=== PATIENT | female | born 1940 | race Hispanic/Latino ===

== ENCOUNTER 2018-05-28 10:51 | Emergency (ER) | payer MEDICARE ==
--- NOTE | 2018-05-28 12:07 | Emergency Department Report ---
ED Fall HPI - General Chief Complaint: Extremity Injury, Upper Stated Complaint: FEEL HIT HEAD/SHOULDER Time Seen by Provider: 05/28/18 12:01 Source: patient, family Mode of arrival: Wheelchair - History of Present Illness Initial Comments: This is a 77-year-old female here report that she tripped and fell from ground level and landed on her right shoulder and she also hit the right side of her head. She says she does not remember hitting her head but is a bruise on the right jain area. Pain is 6 out of 10 and achy. Reports pain with movement of her right shoulder. Pain is worse with movement better rest. No medication taken. Family member reports the patient has a touch of dementia. She denies any dizziness or nausea vomiting. She reports bruising to right shoulder and left anterior head. 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 denies: neck pain, numbness, weakness, chest paint, shortness of breath, abdominal pain, hematuria, unable to walk, lightheaded, vertigo, confusion - Related Data Home Medications Medication Instructions Recorded Confirmed Last Taken Albuterol Sulfate [Ventolin HFA] 1 inhalation INHALATION PRN PRN 05/17/1405/20/14 Amlodipine Besylate/Benazepril 1 cap PO DAILY 05/17/14 05/21/14 05/21/14 [amLODIPine-Benazepril 5/20 mg] Budesonide/Formoterol Fumarate 1 inhalation INHALATION DAILY 05/17/14 05/21/14 05/20/14 [Symbicort 160-4.5 Mcg Inhaler] Gabapentin 1 cap PO TID 05/17/14 05/21/14 05/21/14 Omeprazole [PriLOSEC] 1 cap PO DAILY 05/17/14 05/21/14 05/20/14 Rosuvastatin Calcium [Crestor] 1 tab PO DAILY 05/17/14 05/21/14 05/20/14 Tramadol HCl 1 tab PO PRN 05/17/14 05/21/14 05/20/14 Previous Rx's Medication Instructions Recorded Last Taken Type traMADol [Ultram 50 MG tab] 50 mg PO Q6HR PRN #12 tablet 05/28/18 Unknown Rx Allergies Allergy/AdvReac Type Severity Reaction Status Date / Time No Known Allergies Allergy Verified 05/21/14 08:08 ED Review of Systems ROS: Stated complaint: FEEL HIT HEAD/SHOULDER Other details as noted in HPI Constitutional: denies: chills, fever Eyes: denies: eye pain, eye discharge, vision change Respiratory: denies: cough, shortness of breath, SOB with exertion, SOB at rest , stridor, wheezing Cardiovascular: denies: chest pain, palpitations, edema, syncope Gastrointestinal: denies: abdominal pain, nausea, vomiting, diarrhea, constipation Genitourinary: denies: urgency, dysuria, discharge Musculoskeletal: joint swelling, arthralgia. denies: back pain Skin: rash (Bruising right side of head frontally). denies: lesions Neurological: denies: headache, weakness, numbness, paresthesias, abnormal gait , vertigo ED Past Medical Hx - Past Medical History Previous Medical History?: Yes Hx Hypertension: Yes (30YRS, amlodipine) Hx Pulmonary Embolism: No Hx Arthritis: Yes Hx Asthma: Yes (symbicort/budesonide, albuterol) Hx COPD: No Hx Tuberculosis: No - Surgical History Past Surgical History?: Yes Hx Breast Surgery: Yes (BREAST IMPLANTS/REMOVED) - Family History Family history: hypertension - Social History Smoking Status: Never Smoker Substance Use Type: None - Medications Home Medications: Home Medications Medication Instructions Recorded Confirmed Last Taken Type Albuterol Sulfate [Ventolin HFA] 1 inhalation INHALATION PRN PRN 05/17/1405/20/14 History Amlodipine Besylate/Benazepril 1 cap PO DAILY 05/17/14 05/21/14 05/21/14 History [amLODIPine-Benazepril 5/20 mg] Budesonide/Formoterol Fumarate 1 inhalation INHALATION DAILY 05/17/14 05/21/14 05/20/14 History [Symbicort 160-4.5 Mcg Inhaler] Gabapentin 1 cap PO TID 05/17/14 05/21/14 05/21/14 History Omeprazole [PriLOSEC] 1 cap PO DAILY 05/17/14 05/21/14 05/20/14 History Rosuvastatin Calcium [Crestor] 1 tab PO DAILY 05/17/14 05/21/14 05/20/14 History Tramadol HCl 1 tab PO PRN 05/17/14 05/21/14 05/20/14 History traMADol [Ultram 50 MG tab] 50 mg PO Q6HR PRN #12 tablet 05/28/18 Unknown Rx ED Physical Exam - General Limitations: No Limitations General appearance: alert, in no apparent distress - Head Head exam: Present: atraumatic, normocephalic, normal inspection, other ( patient with small superficial ecchymotic area to right jain) - Expanded Head Exam Expanded Head exam: Present: contusion (right jain). Absent: laceration, abrasion, hematoma, racoon eyes, lopez's sign, general tenderness, CSF otorrhea - Eye Eye exam: Present: normal appearance, PERRL, EOMI. Absent: conjunctival injection, nystagmus, periorbital swelling, periorbital tenderness Pupils: Present: normal accommodation - ENT ENT exam: Present: normal exam, normal orophraynx, mucous membranes moist, TM's normal bilaterally, normal external ear exam - Neck Neck exam: Present: normal inspection, full ROM, other (no C-spine tenderness). Absent: tenderness, meningismus, lymphadenopathy - Respiratory Respiratory exam: Present: normal lung sounds bilaterally. Absent: respiratory distress, chest wall tenderness - Cardiovascular Cardiovascular Exam: Present: regular rate, normal rhythm, normal heart sounds. Absent: systolic murmur, diastolic murmur - GI/Abdominal GI/Abdominal exam: Present: soft, normal bowel sounds. Absent: distended, tenderness, rigid, organomegaly - Extremities Exam Extremities exam: Present: full ROM, tenderness (right anterior shoulder), joint swelling, other (No cce. + 2 pulses in all extremities, no neurovascular compromise except she has a small ecchymotic area to right anterior shoulder with tenderness to palpate in pain with movement.). Absent: normal inspection, normal capillary refill, pedal edema, calf tenderness - Expanded Upper Extremity Exam Right General: Present: other (ecchymotic area to right anterior shoulder). Absent: normal inspection Shoulder Exam: Present: full ROM (pain passive and active range of motion), tenderness (anterior shoulder), swelling, ecchymosis. Absent: normal inspection , abrasion, laceration, deformity, crepidus, dislocation, erythema, tenderness over AC joint Upper Arm exam: Present: normal inspection, full ROM. Absent: tenderness, swelling, abrasion, laceration, ecchymosis, deformity, crepidus, dislocation, erythema Elbow exam: Present: normal inspection, full ROM. Absent: tenderness, swelling , abrasion, laceration, ecchymosis, deformity, crepidus, dislocation, erythema, effusion, pain w/ pronation/supination, tenderness over radial head Forearm Wrist exam: Present: normal inspection, full ROM. Absent: tenderness, swelling, abrasion, laceration, ecchymosis, deformity, crepidus, dislocation, tenderness over anatomical snuff box, pain with axial thumb loading Hand Wrist exam: Present: normal inspection, full ROM. Absent: tenderness, swelling, abrasion, laceration, ecchymosis, deformity, crepidus, dislocation, erythema, amputation, nail avulsion, subungual hematoma Neuro motor exam: Present: wrist extension intact, thumb opposition intact, thumb IP flexion intact, thumb adduction intact, fingers 2-5 abduction intact Neurosensory exam: Present: 2-point discrimination, radial nerve intact, ulnar nerve intact, median nerve intact Vascular: Present: normal capillary refill, radial pulse, brachial pulse, ulnar pulse. Absent: vascular compromise, Pallo, pulse deficit radial art, pulse deficit ulnar art, pulse deficit brachial art - Back Exam Back exam: Present: normal inspection, full ROM, other (ambulates without any difficulties). Absent: tenderness, CVA tenderness (R), CVA tenderness (L), muscle spasm, paraspinal tenderness, vertebral tenderness, rash noted - Neurological Exam Neurological exam: Present: alert, oriented X3 - Expanded Neurological Exam Expanded Neurological exam: Absent: innattentive, memory loss-remote event, memory loss- recent event, ataxia, receptive aphasia, expressive aphasia, total aphasia, tremor, protecting the airway Patient oriented to: Present: person, place, time Speech: Present: fluid speech Cranial nerves: EOM's Intact: Normal, Gag Reflex: Normal, Tongue Deviation: Normal, Nystagmus: Normal, Facial Sensation: Normal Upper motor neuron: Pronator Drift: Normal, Sensory Extinction: Normal Sensory exam: Upper Extremity Light Touch: Normal, Upper Extremity Temperature: Normal, UE 2 Point Discrimination: Normal, Lower Extremity Light Touch: Normal, Lower Extremity Temperature: Normal, LE 2 Point Discrimination: Normal Motor strength exam: RUE: 5, LUE: 5, RLE: 5, LLE: 5 Best Eye Response ([place]): (4) open spontaneously Best Motor Response ([place]): (6) obeys commands Best Verbal Response ([place]): (5) oriented [place] Total: 15 - Psychiatric Psychiatric exam: Present: normal affect, normal mood - Skin Skin exam: Present: warm, dry, intact, rash, ecchymosis (ecchymotic area or right anterior shoulder and right temporal area. Superficial and tender to palpate.). Absent: normal color - Expanded Skin Exam Expanded Type of lesion: Present: other (ecchymosis) Distribution of rash: head, RUE Description of rash: Present: other (ecchymosis). Absent: fluctuant, indurated ED Course Vital Signs 05/28/18 11:13 Temperature 98.2 F Pulse Rate 81 Respiratory 16 Rate Blood Pressure 148/75 O2 Sat by Pulse 98 Oximetry - Reevaluation(s) Reevaluation #1: 05/28/18 12:34 Patient received Tylenol No. 3 one tablet when necessary emergency room for pain. Reevaluation #2: 05/28/18 14:26 Patient pain control with Tylenol No. 3. Head CT normal findings and x-ray of right shoulder normal findings. Still awaiting x-ray femur and right hip. Reevaluation #3: 05/28/18 14:42 Patient states the pain is controlled. Awaiting x-ray results. ED Medical Decision Making - Radiology Data Radiology results: report reviewed CT scan of the head without contrast, x-ray right shoulder, right femur and right hip dictated by radiologist and report reviewed by myself. Please see multiple reports below. Patient: DANIELITO PAVON MR#: [id number] : 1940 Acct:[id number] Age/Sex: 77 / F ADM Date: 05/28/18 Loc: ED Attending Dr: Ordering Physician: BOBBY RODRIGUEZ Date of Service: 05/28/18 Procedure(s): CT head/brain wo con Accession Number(s): [id number] cc: BOBBY RODRIGUEZ FINAL REPORT EXAM: CT HEAD/BRAIN WO CON HISTORY: fall with head injury/contusion TECHNIQUE: CT of the Head without IV contrast. PRIORS: None currently available. FINDINGS: There is no evidence for acute ischemia. There is no hemorrhage. There is no midline shift. There is no hydrocephalus. There is no mass. Age appropriate campbell-white matter attenuation is noted. There is no calvarial fracture. The temporal bones demonstrate aerated mastoid air cells. The middle ears appear unremarkable. Mild mucosal thickening in both ethmoid sinuses. Globes are intact. IMPRESSION: No acute intracranial findings. Transcribed By: TYM Dictated By: LEEROY BARRAGAN MD Electronically Authenticated By: LEEROY BARRAGAN MD Signed Date/Time: 05/28/181337 DD/ 37 TD/TT: 05/28/181337 Patient: DANIELITO PAVON MR#: [id number] : 1940 Acct:[id number] Age/Sex: 77 / F ADM Date: 05/28/18 Loc: ED Attending Dr: Ordering Physician: DEEPALI ROSS MD Date of Service: 05/28/18 Procedure(s): XR shoulder 2+V RT Accession Number(s): [id number] cc: DEEPALI ROSS MD Fluoro Time In Minutes: FINAL REPORT EXAM: XR SHOULDER 2+V RT HISTORY: RT SHOULDER PAIN. S/P FALL TECHNIQUE: Three views right shoulder. PRIORS: None currently available. FINDINGS: There is no acute fracture. There is no evidence for healing fracture. There is no acute dislocation. [id number] arthrosis at the acromioclavicular and glenohumeral joints. There is no cortical destruction to suggest osteomyelitis. There are no suspicious osseous lesions. There are no radiopaque foreign objects. IMPRESSION: No acute osseous findings. Transcribed By: TYM Dictated By: LEEROY BARRAGAN MD Electronically Authenticated By: LEEROY BARRAGAN MD Signed Date/Time: 05/28/18 1421 Patient: DANIELITO PAVON MR#: [id number] : 1940 Acct:[id number] Age/Sex: 77 / F ADM Date: 05/28/18 Loc: ED Attending Dr: Ordering Physician: BOBBY RODRIGUEZ Date of Service: 05/28/18 Procedure(s): XR hip 2-3V RT Accession Number(s): [id number] cc: BOBBY RODRIGUEZ Fluoro Time In Minutes: FINAL REPORT EXAM: XR HIP 2-3V RT HISTORY: fall with swelling and pain to right hip TECHNIQUE: Single view pelvis and 1 view(s) right hip. PRIORS: None currently available. FINDINGS: PELVIS: Sacroiliac joints are unremarkable. There is no acute dislocation. There is no acute fracture. There is no evidence for healing fracture. There is no cortical destruction to suggest osteomyelitis. There are no suspicious osseous lesions. There are no radiopaque foreign objects. RIGHT HIP: Mild osteoarthritis. There is no acute dislocation. There is no acute fracture. There is no evidence for healing fracture. There is no cortical destruction to suggest osteomyelitis. There are no suspicious osseous lesions. There are no radiopaque foreign objects. IMPRESSION: No acute osseous findings. Transcribed By: TYM Dictated By: LEEROY BARRAGAN MD Electronically Authenticated By: LEEROY BARRAGAN MD Signed Date/Time: 05/28/181442 DD/ 42 TD/TT: 05/28/181442 DD/ 142 TD/TT: 05/28/18 1421 Patient: DANIELITO PAVON MR#: [id number] : 1940 Acct:[id number] Age/Sex: 77 / F ADM Date: 05/28/18 Loc: ED Attending Dr: Ordering Physician: BOBBY RODRIGUEZ Date of Service: 05/28/18 Procedure(s): XR femur 2+V RT Accession Number(s): [id number] cc: BOBBY RODRIGUEZ Fluoro Time In Minutes: FINAL REPORT EXAM: XR FEMUR 2+V RT HISTORY: fall with swelling and pain to right femur TECHNIQUE: Two views right femur. PRIORS: None currently available. FINDINGS: There is no acute fracture. There is no evidence for healing fracture. There is no acute dislocation. Arthrosis at the right hip. Vascular calcifications. There is no cortical destruction to suggest osteomyelitis. There are no suspicious osseous lesions. There are no radiopaque foreign objects. IMPRESSION: No acute osseous findings. Transcribed By: TYM Dictated By: LEEROY BARRAGAN MD Electronically Authenticated By: LEEROY BARRAGAN MD Signed Date/Time: 05/28/181441 DD/ 41 TD/TT: 05/28/181441 - Medical Decision Making This is a 69-year-old female here report that she fell this morning and she is using her right thigh, right hip and right shoulder with swelling to the right jain. She said the fall was accidental after she slipped on something. Her family member reports that patient's has mild dementia and she is forgetful. Patient reports that she is in pain and she is here to be evaluated. She was seen and examined by myself and physical exam is normal except she has swelling to posterior small femur and posterior hip with tenderness palpate and mild bruising. She has mild bruising to her anterior right shoulder. She has full range of motion in all extremities active and passive but painful with movement to right hip, thigh and right shoulder. Patient also has superficial ecchymotic area to right jain that is tender to palpate. She has no laceration or contusion. She is supposed to bone and pulses to all extremities and no neurovascular compromise. Patient had CT scan of the head, x-ray of right shoulder, x-ray of right hip and femur which was dictated by radiology and reports reviewed myself. No acute fracture-dislocation seen. Patient with osteoarthritis. I discussed the diagnosis, treatment plan and indication and need to follow-up with orthopedic doctor with patient and family and they voiced understanding . Rice therapy explained. Patient vital signs are stable she is osteoporotic pains controlled. She received Tylenol No. 3 one tablet. Emergency room which relieved her pain. Discharged with prescription for Ultram and to follow-up with orthopedic doctor and her primary care physician in 2-3 days. - Differential Diagnosis FX VS dislocation, subluxation, contusion, strain, musculoskeletal pain Critical care attestation.: If time is entered above; I have spent that time in minutes in the direct care of this critically ill patient, excluding procedure time. ED Disposition Clinical Impression: Contusion of multiple sites, Arthralgia of multiple sites Accidental fall Qualifiers: Encounter type: initial encounter Qualified Code(s): W19.XXXA - Unspecified fall, initial encounter Closed head injury without loss of consciousness Qualifiers: Encounter type: initial encounter Qualified Code(s): S09.90XA - Unspecified injury of head, initial encounter Disposition: TO HOME OR SELFCARE Is pt being admited?: No Does the pt Need Aspirin: No Condition: Stable Instructions: Fall Prevention for Older Adults (ED), RICE Therapy (ED), Contusion in Adults (ED), Minor Head Injury (ED), Musculoskeletal Pain (ED) Additional Instructions: Please follow up with orthopedic doctor in a primary care physician in 2-3 days. If your condition worsens, return to the emergency room Take Ultram for pain but present drive or operate heavy machinery while taking this medication as it causes drowsiness See discharge instruction in Rice therapy Referrals: PRIMARY CAREMD [Primary Care Provider] - 2-3 Days BESSIE BECKFORD MD [Staff Physician] - 2-3 Days Forms: Accompanied Note
[2018-05-28] MEDS ORDERED: TYLENOL #3 PO ONE (12:24)
--- NOTE | 2018-05-28 13:39 | Cat Scan Report ---
FINAL REPORT EXAM: CT HEAD/BRAIN WO CON HISTORY: fall with head injury/contusion TECHNIQUE: CT of the Head without IV contrast. PRIORS: None currently available. FINDINGS: There is no evidence for acute ischemia. There is no hemorrhage. There is no midline shift. There is no hydrocephalus. There is no mass. Age appropriate campbell-white matter attenuation is noted. There is no calvarial fracture. The temporal bones demonstrate aerated mastoid air cells. The middle ears appear unremarkable. Mild mucosal thickening in both ethmoid sinuses. Globes are intact. IMPRESSION: No acute intracranial findings.
--- NOTE | 2018-05-28 14:22 | XRay Report ---
FINAL REPORT EXAM: XR SHOULDER 2+V RT HISTORY: RT SHOULDER PAIN. S/P FALL TECHNIQUE: Three views right shoulder. PRIORS: None currently available. FINDINGS: There is no acute fracture. There is no evidence for healing fracture. There is no acute dislocation. [id number] arthrosis at the acromioclavicular and glenohumeral joints. There is no cortical destruction to suggest osteomyelitis. There are no suspicious osseous lesions. There are no radiopaque foreign objects. IMPRESSION: No acute osseous findings.
--- NOTE | 2018-05-28 14:43 | XRay Report ---
FINAL REPORT EXAM: XR FEMUR 2+V RT HISTORY: fall with swelling and pain to right femur TECHNIQUE: Two views right femur. PRIORS: None currently available. FINDINGS: There is no acute fracture. There is no evidence for healing fracture. There is no acute dislocation. Arthrosis at the right hip. Vascular calcifications. There is no cortical destruction to suggest osteomyelitis. There are no suspicious osseous lesions. There are no radiopaque foreign objects. IMPRESSION: No acute osseous findings.
--- NOTE | 2018-05-28 14:44 | XRay Report ---
FINAL REPORT EXAM: XR HIP 2-3V RT HISTORY: fall with swelling and pain to right hip TECHNIQUE: Single view pelvis and 1 view(s) right hip. PRIORS: None currently available. FINDINGS: PELVIS: Sacroiliac joints are unremarkable. There is no acute dislocation. There is no acute fracture. There is no evidence for healing fracture. There is no cortical destruction to suggest osteomyelitis. There are no suspicious osseous lesions. There are no radiopaque foreign objects. RIGHT HIP: Mild osteoarthritis. There is no acute dislocation. There is no acute fracture. There is no evidence for healing fracture. There is no cortical destruction to suggest osteomyelitis. There are no suspicious osseous lesions. There are no radiopaque foreign objects. IMPRESSION: No acute osseous findings.
[2018-05-28 15:10] VITALS: BP 137/76
== END 2018-05-28 15:15 | disposition home or self-care (01) ==
LOC: ED 10:51
DX: S40.011A Contusion of right shoulder, initial encounter (principal); S70.01XA Contusion of right hip, initial encounter; S70.11XA Contusion of right thigh, initial encounter; S09.90XA Unspecified injury of head, initial encounter; I10 Essential (primary) hypertension; M19.90 Unspecified osteoarthritis, unspecified site; J45.909 Unspecified asthma, uncomplicated; W01.198A Fall on same level from slipping, tripping and stumbling with subsequent striking against other object, initial encounter; Y93.89 Activity, other specified; Y92.89 Other specified places as the place of occurrence of the external cause; Y99.8 Other external cause status
CPT/HCPCS: 70450; 99284

== ENCOUNTER 2018-05-29 10:49 | Outpatient (CLI) | payer MEDICARE ==
[2018-05-29 11:31] LABS: Blood Urea Nitrogen 13 mg/dL (7-17)
== END 2018-05-29 10:50 | disposition home or self-care (01) ==
LOC: MRI 10:49
PROVIDERS: ATTEND Internal Medicine
DX: R40.4 Transient alteration of awareness (principal); R41.3 Other amnesia; I10 Essential (primary) hypertension; E78.00 Pure hypercholesterolemia, unspecified; J45.909 Unspecified asthma, uncomplicated; M19.90 Unspecified osteoarthritis, unspecified site; Z90.710 Acquired absence of both cervix and uterus
CPT/HCPCS: 36415; 82565; 84520

== ENCOUNTER 2018-07-05 10:44 | Emergency (ER) | payer MEDICARE ==
--- NOTE | 2018-07-05 11:18 | Emergency Department Report ---
HPI - General Chief Complaint: High BP Time Seen by Provider: 07/05/18 11:08 - HPI HPI: 78-year-old female presents to the emergency department via EMS from home for a medical checkup. The patient says that she was feeling "bad" this morning and it made her nervous and upset and therefore she called EMS. Patient says that she was having some random aches and pains that have since improved if not resolved but this still concerned her. She denies any chest pain, headache, shortness of breath or any other neurological deficits. She was found to have very elevated blood pressure. The patient does have a history of hypertension for which she takes amlodipine but she is unsure whether or not she took the medications morning. She also has a past medical history of asthma, osteoarthritis and previous records show that the patient may have some questionable mild dementia. The patient lives at home with her . She did not take any medications or receive anything for her symptoms prior to arrival. ED Past Medical Hx - Past Medical History Hx Hypertension: Yes (30YRS, amlodipine) Hx Pulmonary Embolism: No Hx Arthritis: Yes Hx Asthma: Yes (symbicort/budesonide, albuterol) Hx COPD: No Hx Tuberculosis: No - Surgical History Hx Breast Surgery: Yes (BREAST IMPLANTS/REMOVED) - Social History Smoking Status: Former Smoker Substance Use Type: None - Medications Home Medications: Home Medications Medication Instructions Recorded Confirmed Last Taken Type Albuterol Sulfate [Ventolin HFA] 1 inhalation INHALATION PRN PRN 05/17/1405/20/14 History Budesonide/Formoterol Fumarate 1 inhalation INHALATION DAILY 05/17/14 05/21/14 05/20/14 History [Symbicort 160-4.5 Mcg Inhaler] Gabapentin 1 cap PO TID 05/17/14 05/21/14 05/21/14 History Omeprazole [PriLOSEC] 1 cap PO DAILY 05/17/14 05/21/14 05/20/14 History Rosuvastatin Calcium [Crestor] 1 tab PO DAILY 05/17/14 05/21/14 05/20/14 History Amlodipine Besylate/Benazepril 1 each PO QDAY #30 capsule 07/05/18 Unknown Rx [Amlodipine-Benazepril 10-20 mg] Nitrofurantoin Monohyd/M-Cryst 100 mg PO BID #14 capsule 07/05/18 Unknown Rx [Macrobid 100 mg Capsule] ED Review of Systems ROS: Stated complaint: HIGH BP Other details as noted in HPI Comment: All other systems reviewed and negative Constitutional: denies: chills, fever Eyes: denies: eye pain, eye discharge, vision change ENT: denies: ear pain, throat pain Respiratory: denies: cough, shortness of breath, wheezing Cardiovascular: denies: chest pain, palpitations Gastrointestinal: denies: abdominal pain, nausea, diarrhea Genitourinary: denies: urgency, dysuria, discharge Musculoskeletal: arthralgia, myalgia. denies: back pain Skin: denies: rash, lesions Neurological: denies: headache, weakness Physical Exam - Physical Exam Vital Signs: Vital Signs 07/05/18 10:52 Temperature 97.9 F Pulse Rate 78 Blood Pressure 210/92 O2 Sat by Pulse 98 Oximetry Physical Exam: GENERAL: The patient is well-developed well-nourished. HENT: Normocephalic. Atraumatic. Patient has moist mucous membranes. EYES: Extraocular motions are intact. Pupils equal reactive to light bilaterally. NECK: Supple. Trachea is midline. CHEST/LUNGS: Clear to auscultation. There is no respiratory distress noted. HEART/CARDIOVASCULAR: Regular. There is no tachycardia. There is no murmur. ABDOMEN: Abdomen is soft, nontender. Patient has normal bowel sounds. There is no abdominal distention. SKIN: Skin is warm and dry. NEURO: The patient is awake, alert and cooperative. The patient has no focal neurologic deficits. The patient has normal speech. Cranial nerves II through XII grossly intact. No pronator drift. No dysmetria. MUSCULOSKELETAL: There is no tenderness or deformity. There is no limitation range of motion. There is no evidence of acute injury. ED Course Vital Signs 07/05/18 10:52 Temperature 97.9 F Pulse Rate 78 Blood Pressure 210/92 O2 Sat by Pulse 98 Oximetry ED Medical Decision Making - Lab Data Result diagrams: 07/05/18 11:04 07/05/18 11:04 - EKG Data -: EKG Interpreted by Me EKG shows normal: sinus rhythm, axis (left axis deviation), intervals, QRS complexes (Q waves to the septal leads), ST-T waves Rate: normal - EKG Data When compared to previous EKG there are: previous EKG unavailable Interpretation: other (sinus rhythm, left axis deviation, Q waves to the septal leads, LVH) - Medical Decision Making Patient presents to the emergency department with very elevated blood pressure. She originally went to the fire house and then the emergency department because she was nervous about some nonspecific feeling she was having earlier today. However at the time of my evaluation she is asymptomatic. Her blood pressure came down without getting any type of medication and then it came down even further after she was given her morning dose of the amlodipine and MAHENDRA inhibitor. Patient's labs were unremarkable other than a urinary tract infection. She'll be started on Macrobid and was given the first dose here. She has good follow-up with Dr. Johnson, primary care physician. She was given a refill of her antihypertensive medication. She will return to the ER with any worsening of symptoms or any acute distress. - Differential Diagnosis hypertension, anxiety, UTI Critical Care Time: No Critical care attestation.: If time is entered above; I have spent that time in minutes in the direct care of this critically ill patient, excluding procedure time. ED Disposition Clinical Impression: Hypertension Qualifiers: Hypertension type: essential hypertension Qualified Code(s): I10 - Essential ( primary) hypertension UTI (urinary tract infection) Qualifiers: Urinary tract infection type: acute cystitis Hematuria presence: without hematuria Qualified Code(s): N30.00 - Acute cystitis without hematuria Disposition: TO HOME OR SELFCARE Is pt being admited?: No Condition: Stable Instructions: Urinary Tract Infection in Women (ED), Hypertension (ED) Additional Instructions: Please take the pressure medications as prescribed. Keep a blood pressure log. I have started you on an antibiotic for urinary urinary tract infection. Follow-up with your primary care physician in the next few days. Return to the emergency department with any worsening of your symptoms or any acute distress. Prescriptions: Amlodipine Besylate/Benazepril [Amlodipine-Benazepril 10-20 mg] 1 each PO QDAY # 30 capsule Nitrofurantoin Monohyd/M-Cryst [Macrobid 100 mg Capsule] 100 mg PO BID #14 capsule Referrals: MELISSA YANCEY MD [Referring] - 2-3 Days Time of Disposition: 13:02
[2018-07-05 11:19] LABS: Basophils % (Auto) 0.6 % (0.0-1.8); Eosinophils # (Auto) 0.3 K/mm3 (0.0-0.4); Eosinophils % (Auto) 4.8 % (0.0-4.3); Hematocrit 41.3 % (30.3-42.9); Hemoglobin 13.8 gm/dl (10.1-14.3); Lymphocytes # (Auto) 1.6 K/mm3 (1.2-5.4); Lymphocytes % (Auto) 24.3 % (13.4-35.0); Mean Corpuscular HGB Conc 33 % (30-34); Mean Corpuscular Hemoglobin 31 pg (28-32); Mean Corpuscular Volume 93 fl (79-97); Monocytes # (Auto) 0.4 K/mm3 (0.0-0.8); Monocytes % (Auto) 6.3 % (0.0-7.3); Platelet Count 337 K/mm3 (140-440); Red Blood Count 4.42 M/mm3 (3.65-5.03); Red Cell Distribution Width 14.2 % (13.2-15.2)
[2018-07-05 11:37] LABS: Alanine Aminotransferase 29 units/L (7-56); Albumin 4.2 g/dL (3.9-5); BUN/Creatinine Ratio 32; Blood Urea Nitrogen 16 mg/dL (7-17); Calcium 9.3 mg/dL (8.4-10.2); Hemolysis Index 38
[2018-07-05] MEDS ORDERED: NORVASC PO ONE (11:47)
[2018-07-05] MEDS ORDERED: ZESTRIL PO ONE (11:47)
[2018-07-05 12:30] LABS: Bilirubin,Urine NEG (Negative); Blood,Urine NEG (Negative); Color,Urine Yellow (Yellow); Protein,Urine <15 mg/dL mg/dL (Negative); Urobilinogen,Urine < 2.0 mg/dL (<2.0)
[2018-07-05] MEDS ORDERED: MACROBID PO ONE (12:41)
[2018-07-05 12:57] VITALS: BP 143/94
== END 2018-07-05 13:21 | disposition home or self-care (01) ==
LOC: ED 10:44
DX: I10 Essential (primary) hypertension (principal); N30.00 Acute cystitis without hematuria; M19.90 Unspecified osteoarthritis, unspecified site; J45.909 Unspecified asthma, uncomplicated; Z87.891 Personal history of nicotine dependence; Z79.899 Other long term (current) drug therapy
CPT/HCPCS: 36415; 80053; 81001; 85025; 93005; 93010